=== PATIENT | female | born 1940 | race Caucasian/White ===

== ENCOUNTER → 2019-07-26 | Outpatient (CLI) | payer MEDICARE ==
--- NOTE | 2019-07-27 13:43 | KCIC ---
LUMBAR SPINE WO CONTRAST History: Lumbar anterolisthesis and stenosis. Chronic low back pain with bilateral radiculopathy. Technique: Multiplanar, multi sequential MR imaging was performed of the lumbar spine. Comparison: None Findings: Grade 1 anterolisthesis L4 on L5. Otherwise, normal alignment. Normal vertebral body height. No fracture. No pathologic marrow replacing process. Conus terminates at the normal location. No evidence of nerve root clumping. L1-L2: No canal or neuroforaminal narrowing. L2-L3: Minimal posterior disc bulge. Mild facet arthropathy. No canal or neuroforaminal narrowing. L3-L4: Minimal posterior disc bulge. Moderate facet arthropathy. Left facet synovial cyst measures 7 x 5 mm. Minimal mass effect on the left posterior thecal sac. No significant canal narrowing. No neuroforaminal narrowing. L4-L5: Grade 1 anterolisthesis. Advanced facet arthropathy. Severe canal narrowing. Moderate bilateral neural foraminal narrowing. L5-S1: Small posterior disc bulge. Moderate facet arthropathy. No canal narrowing. Moderate bilateral neural foraminal narrowing. Impression: 1. Multilevel lumbar spondylosis most prominent L4-L5 and L5-S1. 2. Grade 1 anterolisthesis L4 on L5 due to advanced facet arthropathy contributing to severe canal narrowing and moderate bilateral neural foraminal narrowing. 3. L3-L4 facet arthropathy with left synovial cyst. Electronically signed by: Javier Fernandez DO (07/27/2019 1:40 PM) [id number]
== END | disposition home or self-care (01) ==
LOC: KCIC MRI 11:20
PROVIDERS: ATTEND Neurological Surgery
DX: M43.16 Spondylolisthesis, lumbar region (principal); M48.062 Spinal stenosis, lumbar region with neurogenic claudication; M47.817 Spondylosis without myelopathy or radiculopathy, lumbosacral region; G89.29 Other chronic pain; M12.88 Other specific arthropathies, not elsewhere classified, other specified site; Z90.710 Acquired absence of both cervix and uterus; Z90.89 Acquired absence of other organs
CPT/HCPCS: 72148

== ENCOUNTER → 2019-09-10 | Outpatient (CLI) | payer MEDICARE ==
[~2019-09-10] MED LIST: ACET500T68 PO; CELE200C PO; CETI10TA16 PO; CHLO25TA10 PO; CHOL100099 PO; COLE625T12 PO; CRESTOR5 MG PO; ESOM40CA PO; LOSA-73 PO; MAGN400C PO; METH750T2 PO; NITR100C PO; OXYC1TAB15 PO; POTA10TA12 PO; TRAM50TA PO; UBID100C26 PO; VALA10008 PO; [UNRECOGNIZED DRUG - OTHER] VAG
[2019-09-10 16:31] LABS: BASO # 0.1 x10^3/uL (0.0-0.2); BASO % 1 % (0-3); EOS # 0.4 x10^3/uL (0.0-0.7); EOS % 5 % (0-3); HEMATOCRIT 43.6 % (36.0-47.0); HEMOGLOBIN 14.7 g/dL (12.0-15.5); LYMPH # 1.9 x10^3/uL (1.0-4.8); LYMPH % 23 % (24-48); MEAN CORPUSCULAR HEMOGLOBIN 30 pg (25-35); MEAN CORPUSCULAR HGB CONC 34 g/dL (31-37); MEAN CORPUSCULAR VOLUME 90 fL (79-100); MONO # 0.6 x10^3/uL (0.0-1.1); MONO % 7 % (0-9); NEUT # 5.3 x10^3/uL (1.8-7.7); NEUT % 64 % (31-73); PLATELET COUNT 381 x10^3/uL (140-400); RED BLOOD COUNT 4.85 x10^6/uL (3.50-5.40); RED CELL DISTRIBUTION WIDTH 12.7 % (11.5-14.5); WHITE BLOOD COUNT 8.3 x10^3/uL (4.0-11.0)
[2019-09-10 16:43] LABS: PROTHROMBIN TIME PATIENT 13.3 SEC (11.7-14.0)
[2019-09-10 17:08] LABS: ALBUMIN 3.8 g/dL (3.4-5.0); ALBUMIN/GLOBULIN RATIO 1.1 (1.0-1.7); CALCIUM 9.6 mg/dL (8.5-10.1); CREATININE 1.1 mg/dL (0.6-1.0); POTASSIUM 3.8 mmol/L (3.5-5.1); TOTAL BILIRUBIN 0.3 mg/dL (0.2-1.0); TOTAL PROTEIN 7.3 g/dL (6.4-8.2)
== END | disposition home or self-care (01) ==
LOC: SURGPAT 13:41
PROVIDERS: ATTEND Neurological Surgery
DX: Z01.818 Encounter for other preprocedural examination (principal); M48.062 Spinal stenosis, lumbar region with neurogenic claudication; M43.16 Spondylolisthesis, lumbar region; M54.16 Radiculopathy, lumbar region; Z88.8 Allergy status to other drugs, medicaments and biological substances; Z79.899 Other long term (current) drug therapy
CPT/HCPCS: 36415; 80053; 82306; 85025; 85610; 85730; 87641